=== PATIENT | male | born 1970 | race Caucasian/White ===

== ENCOUNTER 2019-11-16 10:39 | Emergency (ER) | payer OTHER ==
[2019-11-16 10:48] VITALS: RESP 18
--- NOTE | 2019-11-16 10:56 | ED ---
Lower Extremity Injury HPI - General Chief Complaint: Extremity Injury, Lower Stated Complaint: syncope, lt foot injury Time Seen by Provider: 11/16/19 10:53 Source: patient Mode of arrival: wheelchair Limitations: no limitations - History of Present Illness Initial Comments: Patient is a 48-year-old male presenting to the emergency room with a chief co mplaint of left ankle pain. Patient states last night he had to 16 ounce cans of beer along with half a pint of rum. States he was watching TV when the power went out. States he was attempting to turn the power generator, he suddenly got up off the bed and "passed out". States he twisted his left ankle and woke up with pain along the lateral malleolus of the left foot. States he has pain with ambulation and is alleviated with rest. States this is previously And of for when he is drinking and is only getting out of bed which cause him to pass out. Denies taking medication to alleviate the symptoms. Does report some swelling but denies any bruising in that region. Denies any head injury. - Related Data Home Medications Medication Instructions Recorded Confirmed Aspirin [Adult Low Dose Aspirin EC] 81 mg PO DAILY 11/16/19 11/16/19 Cholecalciferol [Vitamin D3 (25 1,000 unit PO DAILY 11/16/19 11/16/19 Mcg = 1000 Iu)] Lisinopril 30 mg PO DAILY 11/16/19 11/16/19 Minoxidil 10 mg PO DAILY 11/16/19 11/16/19 Simvastatin [Zocor] 20 mg PO DAILY 11/16/19 11/16/19 Spironolactone 50 mg PO DAILY 11/16/19 11/16/19 Allergies Allergy/AdvReac Type Severity Reaction Status Date / Time Penicillins AdvReac Nausea & Verified 11/16/19 11:24 Vomiting Review of Systems ROS Statement: Those systems with pertinent positive or pertinent negative responses have been documented in the HPI. ROS Other: All systems not noted in ROS Statement are negative. Past Medical History Past Medical History: Hypertension Additional Past Medical History / Comment(s): stage 3 kidney disease History of Any Multi-Drug Resistant Organisms: None Reported Past Surgical History: No Surgical Hx Reported Past Psychological History: No Psychological Hx Reported Smoking Status: Never smoker Past Alcohol Use History: Occasional Past Drug Use History: None Reported General Exam Limitations: no limitations General appearance: alert, in no apparent distress Head exam: Present: atraumatic, normocephalic, normal inspection Eye exam: Present: normal appearance, PERRL, EOMI Pupils: Present: normal accommodation ENT exam: Present: normal exam, normal oropharynx, mucous membranes moist Neck exam: Present: normal inspection, full ROM. Absent: tenderness Respiratory exam: Present: normal lung sounds bilaterally. Absent: respiratory distress, wheezes, rales Cardiovascular Exam: Present: regular rate, normal rhythm, normal heart sounds Extremities exam: Present: tenderness (Tenderness along the lateral malleolus of the left foot.), normal capillary refill, joint swelling (Left ankle), other (+2 dorsalis pedis and posterior tibialis bilaterally.). Absent: normal inspection (Mild swelling noted on the lateral malleolus of the left foot. No ecchymotic regions or erythema. ), full ROM (Limited range of motion with inversion and eversion.), pedal edema, calf tenderness Back exam: Present: normal inspection, full ROM Neurological exam: Present: alert, oriented X3 Psychiatric exam: Present: normal affect, normal mood Skin exam: Present: warm, dry, intact, normal color Course Vital Signs 11/16/19 10:45 Temperature 98.9 F Pulse Rate 123 H Respiratory 18 Rate Blood Pressure 116/67 O2 Sat by Pulse 100 Oximetry Medical Decision Making - EKG Data EKG Comments: Sinus rhythm, no ST changes. Inverted T waves in lead 3. Ventricular rate 94, WI 140, QRS 82, QTC 397 Disposition Clinical Impression: Left ankle sprain, Left ankle swelling Disposition: HOME SELF-CARE Condition: Stable Instructions (If sedation given, give patient instructions): Ankle Sprain (ED) Additional Instructions: Follow-up with an recreation specialist. Ice, take Tylenol for pain, keep the leg elevated. Return to emergency department if symptoms worsen. Is patient prescribed a controlled substance at d/c from ED?: No Referrals: None,Stated [Primary Care Provider] - 1-2 days Gabino Driscoll PAC [PHYSIC[facility] [employer]] - 1-2 days Time of Disposition: 11:53
--- NOTE | 2019-11-16 11:41 | XR ---
EXAMINATION TYPE: XR ankle complete LT DATE OF EXAM: 11/16/2019 COMPARISON: NONE HISTORY: Pain FINDINGS: Three views of the ankle demonstrate the ankle mortise to be intact and symmetric. The joint spaces are preserved. The osseous structures are intact. IMPRESSION: 1. No definite acute fracture or dislocation, if symptoms persist follow-up study in 7 to 10 days wou ld be suggested.
[2019-11-16 11:51] VITALS: BP 115/72; PULSE 91; TEMP 98.6
== END 2019-11-16 12:34 | disposition home or self-care (01) ==
LOC: EC 10:39
DX: S93.402A Sprain of unspecified ligament of left ankle, initial encounter (principal); M25.472 Effusion, left ankle; I10 Essential (primary) hypertension; Z79.82 Long term (current) use of aspirin; Z79.899 Other long term (current) drug therapy; Z88.0 Allergy status to penicillin; X50.1XXA Overexertion from prolonged static or awkward postures, initial encounter
CPT/HCPCS: 93005; 99283